=== PATIENT | female | born 1990 | race Caucasian/White ===

== ENCOUNTER 2018-06-02 21:07 | Emergency (ER) | payer MEDICAID ==
[~2018-06-02] VITALS: Ht 165.1 cm; Wt 57.0 kg
[2018-06-02 21:14] VITALS: BP 161/109
[2018-06-02] MEDS ORDERED: LORazepam 1MG TABLET ONE (21:24)
[2018-06-02] MEDS ORDERED: LORazepam 1MG TABLET PO ONE (21:30)
== END 2018-06-02 21:51 | disposition home or self-care (01) ==
LOC: ED 21:50
DX: F41.1 Generalized anxiety disorder (principal); F15.980 Other stimulant use, unspecified with stimulant-induced anxiety disorder; F17.200 Nicotine dependence, unspecified, uncomplicated
CPT/HCPCS: 99284